=== PATIENT | male | born 1960 | race Two or more races ===

== ENCOUNTER 2023-08-12 16:41 | Emergency (ER) | payer SELFPAY ==
[~2023-08-12] VITALS: Ht 185.4 cm; Wt 139.0 kg
[2023-08-12 17:53] LABS: Basophils # (auto) 0.1 10 ^3/uL (0-0.2); Basophils % (auto) 0.8 % (0.0-2.0); Eosinophils # (auto) 0.1 10 ^3/uL (0-0.8); Eosinophils % (auto) 1.4 % (0.0-7.0); Hematocrit 47.6 % (41.0-53.0); Hemoglobin 16.2 g/dL (13.5-17.5); Lymphocytes # (auto) 2.8 10 ^3/uL (0.4-5.4); Lymphocytes % (auto) 30.9 % (10.0-50.0); Mean Corpuscular Hemoglobin 31.7 pg (28.0-32.0); Mean Corpuscular Volume 93.2 fL (80.0-100.0); Neutrophils # (auto) 5.1 10 ^3/uL (1.6-8.6); Neutrophils % (auto) 55.9 % (37.0-80.0); Nucleated Red Blood Cells % 0.1 %; Red Blood Cells 5.11 10^6/uL (4.5-5.90); Red Cell Distribution Width 13.4 % (11.8-14.3); White Blood Cell 9.1 10^3/uL (4.4-10.8)
[2023-08-12 18:17] LABS: Alanine Aminotransferase 34 U/L (7-40); Alkaline Phosphatase 76 U/L (46-116); Calcium 9.6 mg/dL (8.7-10.4); Carbon Dioxide 21 mmol/L (20-30); Chloride 109 mmol/L (98-107)
[2023-08-12 18:18] LABS: Albumin 4.7 g/dL (3.2-4.8); Anion Gap 8 (5-15); Aspartate Aminotransferase 23 U/L (13-40); BUN/Creatinine Ratio 18.3 (10.0-20.0); Bilirubin, Total 0.4 mg/dL (0.2-1.0); Blood Urea Nitrogen 20 mg/dL (9-23); Glucose 108 mg/dL (74-106); Potassium 4.3 mmol/L (3.5-5.1); Sodium 138 mmol/L (136-145); Total Protein 7.9 g/dL (5.7-8.2)
[2023-08-12 18:41] LABS: INR 1.61 (0.9-1.15); Partial Thromboplastin Time 35.6 SEC (24.5-34.5); Prothrombin Time 16.4 sec (9.3-11.8)
[2023-08-12] MEDS ORDERED: ACETAMINOPHEN 500 MG TAB PO ONE ×2 (21:57→22:00)
[2023-08-12 22:11] VITALS: BP 140/85; TEMP 97.8
[2023-08-12 23:52] VITALS: PULSE 76; RESP 18; O2SAT 95
== END 2023-08-12 23:54 | disposition home or self-care (01) ==
LOC: ER 16:41
DX: I82.491 Acute embolism and thrombosis of other specified deep vein of right lower extremity (principal); R06.02 Shortness of breath; E66.01 Morbid (severe) obesity due to excess calories; Z68.41 Body mass index [BMI] 40.0-44.9, adult; Z79.899 Other long term (current) drug therapy
CPT/HCPCS: 36415; 71045; 71275; 80053; 83735; 84484; 85025; 85379; 85610; 85730; 93005; 93971; 99285; Q9967

== ENCOUNTER → 2024-02-08 | Outpatient (CLI) | payer BC | END | disposition home or self-care (01) | LOC: RT 10:35 | PROVIDERS: ATTEND Internal Medicine | DX: R06.02 Shortness of breath (principal); R05.8 Other specified cough; R06.00 Dyspnea, unspecified; I11.0 Hypertensive heart disease with heart failure; I50.20 Unspecified systolic (congestive) heart failure; R63.8 Other symptoms and signs concerning food and fluid intake; Z68.39 Body mass index [BMI] 39.0-39.9, adult | CPT/HCPCS: 94060; 94727; 94729 ==